=== PATIENT | female | born 1995 | race Caucasian/White ===

== ENCOUNTER 2017-04-10 16:39 | Emergency (ER) | payer OTHER ==
[2017-04-10 16:47] VITALS: BP 124/68
[2017-04-10 16:53] VITALS: BMI 33.9
--- NOTE | 2017-04-10 19:05 | US ---
Limited pelvic sonogram Indication: Tachycardia on outside ultrasound examination Comparison: None available, patient poor to have had recent sonogram however that is not available a t time of this examination. Findings: There are 2 would be intrauterine gestations baby a has a heart rate of 148 beats pe r min and baby B has a heart rate of 142 beats per min. There is no abnormal fluid or echogeni city within the anteriorly positioned placenta. Limited evaluation demonstrates no definite anatomic abnormality within either baby. Impression: Twin intrauterine gestations both of which are viable with heart rates of 142 and 148 beats per min. No placental or retroplacental abnormality identified. Reported By:
== END 2017-04-10 18:25 | disposition home or self-care (01) ==
LOC: ER 16:39
DX: R00.0 Tachycardia, unspecified (principal)
CPT/HCPCS: 76815; 99282; 99284